=== PATIENT | male | born 1930 | race Caucasian/White ===

== ENCOUNTER → 2017-05-31 | Outpatient (CLI) | payer OTHER ==
[~2017-05-31] MED LIST: ASPI-515 PO; BUDE10.2 INH; CEPH-368 PO; CHOL500045 PO; CYCL5TAB PO; FURO40TA6 PO; HYDR-3240 PO; IPRATROPIUM BROM INH; LOVA20TA2 PO; MELOXICAM PO; MULT-516 PO; POTA20TA14 PO; TAMS0.4C2 PO
== END ==
LOC: CFH 10:32
PROVIDERS: ATTEND Internal Medicine Cardiovascular Disease
DX: I35.1 Nonrheumatic aortic (valve) insufficiency (principal)
CPT/HCPCS: 93306

== ENCOUNTER 2017-11-24 14:17 | Inpatient (IN) | payer OTHER ==
[~2017-11-24] VITALS: Ht 175.3 cm; Wt 86.2 kg
[~2017-11-24 14:17] MED LIST changes: +ACET500T71 PO; +DAPT500V6 IV; +METH12VI2 SQ; +METH750T2 PO; +OXYC5TAB3 PO
[2017-11-24 15:34] LABS: BASOPHILS # (AUTO) 0.08 x10^3/uL (0-0.1); BASOPHILS % (AUTO) 1 % (0-1); EOSINOPHILS # (AUTO) 0.62 x10^3/uL (0-0.4); EOSINOPHILS % (AUTO) 6 % (1-7); LYMPHOCYTES # (AUTO) 2.42 x10^3/uL (1-3.4); LYMPHOCYTES % (AUTO) 21 % (22-44); MD NO; MEAN CORPUSCULAR HEMOGLOBIN 29.3 pg (27.5-34.5); MEAN CORPUSCULAR HGB CONC 32.7 g/dL (33.2-36.2); MEAN CORPUSCULAR VOLUME 89.6 fL (81-97); MEAN PLATELET VOLUME 7.7 fL (7.4-10.4); MONOCYTES # (AUTO) 1.27 x10^3/uL (0.2-0.8); MONOCYTES % (AUTO) 11 % (2-9); NEUTROPHILS # (AUTO) 6.99 x10^3/uL (1.8-6.8); NEUTROPHILS % (AUTO) 61 % (42-75); PLATELET COUNT 368 x10^3/uL (130-400); RED BLOOD COUNT 4.37 x10^6/uL (4.38-5.82); RED CELL DISTRIBUTION WIDTH 17.3 % (9.4-14.8)
[2017-11-24 15:43] LABS: INTERNATIONAL NORMALIZED RATIO 1.02 (0.93-1.1); PROTHROMBIN TIME 10.5 Seconds (9.6-11.5)
[2017-11-24 15:45] LABS: ALBUMIN 2.8 g/dL (3.4-5.0); ANION GAP 7 mmol/L (5-15); CALCIUM 9.9 mg/dL (8.5-10.1); CHLORIDE 107 mmol/L (98-107); CREATININE 0.83 mg/dL (0.7-1.3)
[2017-11-24] MEDS ORDERED: HEPARIN 5,000 UNITS/ML, 1ML IV PRN (16:00)
[2017-11-24] MEDS ORDERED: HEPARIN 5,000 UNITS/ML, 1ML IV ONE (16:00)
[2017-11-24] MEDS ORDERED: HEPARIN 25,000 UNITS/500ML PMX 500 ML IV PRN (16:00)
[2017-11-24] MEDS ORDERED: SODIUM CHLORIDE FLUSH 10ML SYR IVF ONE (16:00)
[2017-11-24] MEDS ORDERED: HEPARIN 5,000 UNITS/ML, 1ML ONE (16:03)
[2017-11-24] MEDS ORDERED: HEPARIN 25,000 UNITS/500ML PMX 500 ML ONE (16:03)
[2017-11-24] MEDS ORDERED: OMNIPAQUE 350 MG/ML, 100ML BOTTLE ONE (18:00)
[2017-11-24] MEDS ORDERED: ONDANSETRON ODT 4 MG PO PRN (19:00)
[2017-11-24] MEDS ORDERED: ENALAPRILAT 1.25 MG/ML, 2ML IVPush PRN (19:00)
[2017-11-24] MEDS ORDERED: POLYETHYLENE GLYCOL 17 GM PACKET PO PRN (19:00)
[2017-11-24] MEDS ORDERED: HYDROcodone/APAP 5/325 TABLET PO PRN (19:00)
[2017-11-24] MEDS ORDERED: BISACODYL 10 MG SUPP PR PRN (19:00)
[2017-11-24] MEDS ORDERED: METHOCARBAMOL 750 MG TABLET PO PRN (19:00)
[2017-11-24] MEDS ORDERED: IPRATROPIUM 0.5 MG/2.5 ML INHA NPPB PRN (21:00)
[2017-11-24] MEDS ORDERED: IPRATROPIUM 0.5 MG/2.5 ML INHA NPPB SCH (21:30)
[2017-11-24] MEDS: ACETAMINOPHEN 500 MG TABLET PO SCH (21:33)
[2017-11-24] MEDS: TAMSULOSIN 0.4 MG CAP.ER.24H PO SCH (21:33)
[2017-11-24] MEDS: LOVASTATIN 20 MG TABLET PO SCH (21:33)
[2017-11-24] MEDS: DOCUSATE 100 MG CAPSULE PO SCH (21:33)
[2017-11-25 01:02] VITALS: BP 103/62
[2017-11-25 01:13] VITALS: BP 126/62
[2017-11-25] MEDS: ACETAMINOPHEN 500 MG TABLET PO SCH ×3 (05:53→20:12)
[2017-11-25 06:09] LABS: ANION GAP 5 mmol/L (5-15); CALCIUM 9.5 mg/dL (8.5-10.1); CHLORIDE 109 mmol/L (98-107); CREATININE 0.74 mg/dL (0.7-1.3)
[2017-11-25] MEDS: IPRATROPIUM 0.5 MG/2.5 ML INHA NPPB SCH (06:59)
[2017-11-25 07:02] VITALS: BP 109/66
[2017-11-25] MEDS: MULTIVITAMIN 1 TABLET PO SCH (09:17)
[2017-11-25] MEDS: TAMSULOSIN 0.4 MG CAP.ER.24H PO SCH ×2 (09:17→20:12)
[2017-11-25] MEDS: DOCUSATE 100 MG CAPSULE PO SCH ×2 (09:17→20:12)
[2017-11-25] MEDS: POTASSIUM CHLORIDE 20 MEQ TAB.ER.PRT PO SCH (09:18)
[2017-11-25] MEDS: FUROSEMIDE 40 MG TABLET PO SCH (09:18)
[2017-11-25] MEDS: ASPIRIN 81 MG TABLET EC PO SCH (09:18)
[2017-11-25] MEDS: CHOLECALCIFEROL 1,000 UNIT TABLET PO SCH (09:24)
[2017-11-25] MEDS: FLUTICASONE/VILANTEROL 200-25MCG/INH INH SCH (11:50)
[2017-11-25] MEDS ORDERED: HEPARIN 25,000 UNITS/500ML PMX 500 ML IV PRN (12:00)
[2017-11-25 13:33] VITALS: BP 93/54
[2017-11-25] MEDS: RIVAROXABAN 15 MG TABLET PO SCH (17:05)
[2017-11-25 19:59] VITALS: BP 104/63
[2017-11-25 20:10] VITALS: BP 116/67
[2017-11-25] MEDS: LOVASTATIN 20 MG TABLET PO SCH (20:12)
[2017-11-26 01:03] VITALS: BP 111/65
[2017-11-26 04:52] LABS: BASOPHILS # (AUTO) 0.05 x10^3/uL (0-0.1); BASOPHILS % (AUTO) 1 % (0-1); EOSINOPHILS # (AUTO) 1.02 x10^3/uL (0-0.4); EOSINOPHILS % (AUTO) 14 % (1-7); LYMPHOCYTES # (AUTO) 1.65 x10^3/uL (1-3.4); LYMPHOCYTES % (AUTO) 23 % (22-44); MD NO; MEAN CORPUSCULAR HEMOGLOBIN 29.4 pg (27.5-34.5); MEAN CORPUSCULAR HGB CONC 32.7 g/dL (33.2-36.2); MEAN PLATELET VOLUME 7.7 fL (7.4-10.4); MONOCYTES # (AUTO) 0.73 x10^3/uL (0.2-0.8); MONOCYTES % (AUTO) 10 % (2-9); NEUTROPHILS # (AUTO) 3.68 x10^3/uL (1.8-6.8); NEUTROPHILS % (AUTO) 52 % (42-75); PLATELET COUNT 317 x10^3/uL (130-400); RED BLOOD COUNT 3.67 x10^6/uL (4.38-5.82); RED CELL DISTRIBUTION WIDTH 17.1 % (9.4-14.8)
[2017-11-26] MEDS: ACETAMINOPHEN 500 MG TABLET PO SCH ×2 (05:43→13:52)
[2017-11-26] MEDS: IPRATROPIUM 0.5 MG/2.5 ML INHA NPPB SCH (07:03)
[2017-11-26 07:32] VITALS: BP 132/68
[2017-11-26] MEDS ORDERED: RIVA15TA PO (10:31)
[2017-11-26] MEDS: ASPIRIN 81 MG TABLET EC PO SCH (11:39)
[2017-11-26] MEDS: MULTIVITAMIN 1 TABLET PO SCH (11:40)
[2017-11-26] MEDS: DOCUSATE 100 MG CAPSULE PO SCH (11:40)
[2017-11-26] MEDS: CHOLECALCIFEROL 1,000 UNIT TABLET PO SCH (11:40)
[2017-11-26] MEDS: RIVAROXABAN 15 MG TABLET PO SCH (11:41)
[2017-11-26] MEDS: FLUTICASONE/VILANTEROL 200-25MCG/INH INH SCH (11:41)
[2017-11-26] MEDS: FUROSEMIDE 40 MG TABLET PO SCH (11:42)
[2017-11-26] MEDS: TAMSULOSIN 0.4 MG CAP.ER.24H PO SCH (11:42)
[2017-11-26] MEDS: POTASSIUM CHLORIDE 20 MEQ TAB.ER.PRT PO SCH (11:45)
[2017-11-26 12:45] VITALS: BP 121/66
== END 2017-11-26 15:19 | disposition home health service (06) | DRG 299 ==
LOC: ED 16:24 → EDIP 17:43 → 3NE 20:11
PROVIDERS: ADMIT Hospitalist; ATTEND Hospitalist
DX: I82.431 Acute embolism and thrombosis of right popliteal vein (principal); R53.2 Functional quadriplegia; E44.0 Moderate protein-calorie malnutrition; I82.411 Acute embolism and thrombosis of right femoral vein; I50.32 Chronic diastolic (congestive) heart failure; J98.11 Atelectasis; I82.422 Acute embolism and thrombosis of left iliac vein; G89.29 Other chronic pain; J44.9 Chronic obstructive pulmonary disease, unspecified; K59.00 Constipation, unspecified; M19.90 Unspecified osteoarthritis, unspecified site; Z66 Do not resuscitate; Z87.891 Personal history of nicotine dependence; Z99.81 Dependence on supplemental oxygen
CPT/HCPCS: 36415; 71045; 71275; 80048; 82040; 85025; 85520; 85610; 85730; 93005; 94640; 96374; J1644; J7644; Q9967